=== PATIENT | female | born 1990 | race Two or more races ===

== ENCOUNTER 2020-12-31 21:31 | Emergency (ER) | payer MEDICAID, OTHER ==
[~2020-12-31] VITALS: Ht 167.6 cm; Wt 78.5 kg
[2020-12-31 22:20] LABS: Basophils # (auto) 0 10 ^3/uL (0-0.2); Basophils % (auto) 0.2 % (0.0-2.0); Eosinophils # (auto) 0.1 10 ^3/uL (0-0.8); Eosinophils % (auto) 0.9 % (0.0-7.0); Hematocrit 37.8 % (36.0-46.0); Hemoglobin 12.8 g/dL (12.2-16.2); Lymphocytes # (auto) 2.1 10 ^3/uL (0.4-5.4); Mean Corpuscular Hemoglobin 28.4 pg (28.0-32.0); Mean Corpuscular Hgb Conc. 33.7 g/dL (32.0-36.0); Mean Corpuscular Volume 84.2 fL (80.0-100.0); Monocytes # (auto) 0.4 10 ^3/uL (0-1.3); Monocytes % (auto) 6.2 % (0.0-12.0); Neutrophils # (auto) 4.3 10 ^3/uL (1.6-8.6); Neutrophils % (auto) 61.7 % (37.0-80.0); Platelet Count (auto) 238 10^3/uL (140-450); Red Cell Distribution Width 14.4 % (11.8-14.3); White Blood Cell 6.9 10^3/uL (4.4-10.8)
[2020-12-31 22:54] LABS: Albumin 3.9 g/dL (3.4-5.0); Potassium 3.1 mmol/L (3.5-5.1)
[2020-12-31 22:59] LABS: BUN/Creatinine Ratio 11.9; Bilirubin, Total 0.2 mg/dL (0.2-1.0); Total Protein 7.6 g/dL (6.4-8.2)
[2021-01-01 01:49] LABS: Urine Bacteria FEW /hpf (None Seen); Urine Blood 1+ /uL (Negative); Urine Specific Gravity 1.024 (1.001-1.035); Urine WBC 28 /hpf (0 - 5)
[2021-01-01] MEDS ORDERED: POTASSIUM EFFERVESENT TAB 25 MEQ PO ONE (02:30)
[2021-01-01 03:00] VITALS: BP 147/98
== END 2021-01-01 04:44 | disposition home or self-care (01) ==
LOC: ER 21:31
DX: N20.0 Calculus of kidney (principal); N39.0 Urinary tract infection, site not specified; I10 Essential (primary) hypertension; Z32.02 Encounter for pregnancy test, result negative
CPT/HCPCS: 36415; 74176; 80053; 81001; 81025; 85025